=== PATIENT | male | born 1990 | race African-American/Black ===

== ENCOUNTER 2016-11-13 11:35 | Inpatient (IN) | payer OTHER ==
[~2016-11-13] VITALS: Ht 167.6 cm; Wt 57.4 kg
[2016-11-13] MEDS ORDERED: LORazepam 1 MG TABLET PO ONE (12:00)
[2016-11-13] MEDS ORDERED: ONDANSETRON HCL 4 MG/2 ML VIAL IVP ONE (12:00)
[2016-11-13] MEDS ORDERED: SODIUM CHLORIDE 0.9% 1,000 ML IV ONE (12:00)
[2016-11-13 12:09] LABS: BASOPHILS % (AUTO) 0.3 % (0.0-2.0); HEMATOCRIT 40.8 % (41-53); HEMOGLOBIN 13.3 g/dL (13.5-17.5); LYMPHOCYTES # (AUTO) 1.2 K/uL (1.0-4.8); LYMPHOCYTES % (AUTO) 13.9 % (22.0-44.0); MEAN CORPUSCULAR HEMOGLOBIN 29.5 pg (26.0-34.0); MEAN CORPUSCULAR HGB CONC 32.7 G/dL (31.0-37.0); MEAN CORPUSCULAR VOLUME 90 fL (80-100); MONOCYTES # (AUTO) 0.3 K/uL (0.1-1.0); MONOCYTES % (AUTO) 3.5 % (2.0-9.0); NEUTROPHILS % (AUTO) 81.3 % (40.0-70.0); PLATELET COUNT (AUTO) 233 K/uL (150-450); RED BLOOD CELL COUNT(AUTO) 4.53 MIL/uL (4.50-5.90); RED CELL DISTRIBUTION WIDTH 14.2 % (11.5-14.5); WHITE BLOOD COUNT (AUTO) 8.7 K/uL (4.5-11.0)
[2016-11-13 12:19] LABS: ANION GAP 13 mmol/L (8-16); CALCIUM, TOTAL 8.5 mg/dL (8.8-10.5); CARBON DIOXIDE 22 mmol/L (22-29); CHLORIDE 108 mmol/L (98-107); CREATININE 1.24 mg/dL (0.60-1.30); GLOMERULAR FILTR. RATE CALC > 60 mL/min (>60); POTASSIUM 4.2 mmol/L (3.5-5.1); SODIUM SERUM 143 mmol/L (136-145); UREA NITROGEN, BLOOD 7 mg/dL (7-18)
[2016-11-13 12:26] LABS: ALANINE AMINOTRANSFERASE 30 U/L (12-78); ALBUMIN 3.5 g/dL (3.4-5.0); ASPARTATE AMINOTRANSFERASE 24 U/L (15-37); BILIRUBIN,TOTAL 0.4 mg/dL (0.1-1.0); TOTAL PROTEIN, SERUM 6.6 g/dL (6.4-8.2)
[2016-11-13 12:47] LABS: VALPROIC ACID 4 mcg/mL (50-100)
[2016-11-13] MEDS ORDERED: PHENYTOIN SODIUM 1,000 MG in SODIUM CHLORIDE 0.9% 150 ML IV ONE (13:00)
[2016-11-13] MEDS ORDERED: MAGNESIUM HYDROXIDE SUSPENSION 30 ML UDCUP PO PRN (15:45)
[2016-11-13] MEDS ORDERED: ACETAMINOPHEN 325 MG TABLET PO PRN (15:45)
[2016-11-13] MEDS ORDERED: LORazepam 2 MG/ML VIAL IVP PRN (15:45)
[2016-11-13 17:36] VITALS: BP 109/69
[2016-11-13] MEDS ORDERED: PNEUMOCOCCAL VACCINE POLYVALENT 0.5 ML VIAL [PPSV23] IM ONE (19:15)
[2016-11-13] MEDS: LevETIRAcetam 500 MG TABLET PO SCH (20:48)
[2016-11-13 20:49] VITALS: BP 125/74
[2016-11-14 00:06] VITALS: BP 122/77
[2016-11-14 04:30] VITALS: BP 123/59
[2016-11-14] MEDS: LevETIRAcetam 500 MG TABLET PO SCH (08:29)
[2016-11-14 08:30] VITALS: BP 126/75
[2016-11-14] MEDS ORDERED: LEVE250T55 PO (10:54)
== END 2016-11-14 11:00 | disposition home or self-care (01) | DRG 53 ==
LOC: EMS 11:38 → 5S 15:58
PROVIDERS: ADMIT Internal Medicine; ATTEND Internal Medicine
DX: G40.909 Epilepsy, unspecified, not intractable, without status epilepticus (principal); F12.90 Cannabis use, unspecified, uncomplicated; Z79.899 Other long term (current) drug therapy
CPT/HCPCS: 70450; 70551; 93005; 96361; 96365; 99285; G0480; J1165; J7050

== ENCOUNTER 2024-09-12 17:02 | Emergency (ER) | payer OTHER ==
[~2024-09-12] VITALS: Ht 170.2 cm; Wt 56.8 kg
[~2024-09-12 17:02] MED LIST: LEVE250T81 PO
[2024-09-12 17:10] VITALS: BP 122/79; PULSE 64; RESP 18; O2SAT 100
[2024-09-12] MEDS ORDERED: PHEN100C9 PO (17:13)
[2024-09-12] MEDS ORDERED: LAMO200T10 PO (17:13)
[2024-09-12] MEDS: IBUPROFEN 600 MG TABLET PO ONE (18:02)
[2024-09-12] MEDS: AMOX TR/POT CLAV 875 MG/125 MG TABLET PO ONE (18:02)
[2024-09-12] MEDS: ACETAMINOPHEN 325 MG TABLET PO ONE (18:02)
[2024-09-12] MEDS ORDERED: IBUP-1492 PO (18:04)
[2024-09-12] MEDS ORDERED: ACET-2247 PO (18:04)
[2024-09-12] MEDS ORDERED: AMOX-457 PO (18:04)
== END 2024-09-12 18:31 | disposition home or self-care (01) ==
LOC: EMS 17:02
DX: K08.89 Other specified disorders of teeth and supporting structures (principal); Z98.890 Other specified postprocedural states
CPT/HCPCS: 99284; Z7502; Z7610